=== PATIENT | male | born 1995 | race Caucasian/White ===

== ENCOUNTER 2017-04-11 07:49 | Emergency (ER) | payer OTHER ==
[~2017-04-11] VITALS: Ht 185.4 cm; Wt 95.0 kg
[2017-04-11] MEDS ORDERED: KETOROLAC 60MG/2ML VIAL IM ONE (11:15)
[2017-04-11 11:31] VITALS: BP 133/61
== END 2017-04-11 12:32 | disposition home or self-care (01) ==
LOC: ER 11:44
DX: S43.402A Unspecified sprain of left shoulder joint, initial encounter (principal); S93.602A Unspecified sprain of left foot, initial encounter; V29.88XA Motorcycle rider (driver) (passenger) injured in other specified transport accidents, initial encounter; Y93.55 Activity, bike riding; Y92.89 Other specified places as the place of occurrence of the external cause; Y99.8 Other external cause status
CPT/HCPCS: 73030; 73630; 96372; 99284; J1885; Z7610